=== PATIENT | female | born 1970 | race Caucasian/White ===

== ENCOUNTER 2025-01-23 05:20 | Emergency (ER) | payer OTHER, SELFPAY ==
[2025-01-23 05:25] VITALS: BP 128/66; PULSE 79; RESP 18; TEMP 36.6; O2SAT 99; BMI 35.7
[2025-01-23] MEDS: LIDOCAINE 1%-EPI 1:100,000 2 ML INFILTRATI (05:31)
--- NOTE | 2025-01-23 05:43 | ED_ITS ---
HPI - General Adult General Date Seen: 01/23/25 Chief complaint: Laceration/Wound Stated complaint: R arm injury at work Time Seen by Provider: 01/23/25 05:29 History of Present Illness HPI narrative: Patient is a 54-year-old woman who cut her right arm while at work on a sharp metal blade. Bleeding controlled, no complaints of loss of function or numbness, tetanus up-to-date. Related Data Allergies Allergy/AdvReac Type Severity Reaction Status Date / Time No Known Drug Allergies Allergy Verified 01/23/25 05:27 PFSH PFS Medical History (Updated 01/23/25 @ 05:41 by Leno Bustamante, RN) History of vaginal delivery Subclinical hypothyroidism ?E03.8 - Other specified hypothyroidism (ICD-10) Depression ?F32.A - Depression, unspecified (ICD-10) PTSD (post-traumatic stress disorder) ?F43.10 - Post-traumatic stress disorder, unspecified (ICD-10) Fibromyalgia ?M79.7 - Fibromyalgia (ICD-10) Surgical History (Updated 01/23/25 @ 05:41 by Leno Bustamante RN) History of cholecystectomy ?Z90.49 - Acquired absence of other specified parts of digestive tract (ICD- 10) H/O: section ?Z98.891 - History of uterine scar from previous surgery (ICD-10) History of dilation and curettage ?Z98.890 - Other specified postprocedural states (ICD-10) History of hysterectomy ?Z90.710 - Acquired absence of both cervix and uterus (ICD-10) History of tonsillectomy ?Z90.89 - Acquired absence of other organs (ICD-10) S/P gastric bypass ?Z98.84 - Bariatric surgery status (ICD-10) Bariatric surgery status ?Z98.84 - Bariatric surgery status (ICD-10) Social History Smoking Status: Former smoker How often do you have a drink containing alcohol: never AUDIT-C Alcohol total score: 0 Non-prescribed substance use: denies use Exam Narrative: Exam Narrative: Vital signs reviewed In general, alert, well-appearing woman. Extremities: Examination of the right arm shows a 2 cm straight laceration which extends into the subcutaneous tissue on the ulnar aspect of the forearm. Bleeding is controlled. Const: Vital Signs, click to edit/add: Vital Signs - 24 hr 01/23/25 05:25 Temperature 97.8 F Pulse Rate [Right Pulse Oximeter] 79 Respiratory Rate 18 Blood Pressure [Ri ght Upper Arm] 128/66 Pulse Oximetry 99 Oxygen Delivery Me thod Room Air Course Course ED Course: Procedure note: Wound was anesthetized using lidocaine with epinephrine. Explored, no evidence of foreign body or injury to deeper structures. Closed using 5 0 nylon, a total of 4 simple interrupted superficial sutures replaced. She tolerated this well without immediate complication. Dressing applied by the nurse. Discussed routine wound care, return for signs of infection, suture removal in 7-10 days if her clinic. Vital Signs Vital signs: Initial Vital Signs Temperature 97.8 F 01/23/25 05:25 Temperature Source Temporal Artery Scan 01/23/25 05:25 Pulse Rate 79 01/23/25 05:25 Respiratory Rate 18 01/23/25 05:25 Blood Pressure 128/66 01/23/25 05:25 Blood Pressure Mean 86 01/23/25 05:25 Blood Pressure Position Sitting 01/23/25 05:25 Pulse Oximetry 99 01/23/25 05:25 Oxygen Delivery Method Room Air 01/23/25 05:25 Vital Signs Temperature 97.8 F 01/23/25 05:25 Pulse Rate 79 01/23/25 05:25 Respiratory Rate 18 01/23/25 05:25 Blood Pressure 128/66 01/23/25 05:25 Pulse Oximetry 99 01/23/25 05:25 Oxygen Delivery Method Room Air 01/23/25 05:25 Temperature 97.8 F 01/23/25 05:25 Pulse Rate 79 01/23/25 05:25 Respiratory Rate 18 01/23/25 05:25 Blood Pressure 128/66 01/23/25 05:25 Pulse Oximetry 99 01/23/25 05:25 Oxygen Delivery Method Room Air 01/23/25 05:25
--- OUTSIDE RECORDS SUMMARY | 2025-01-23 05:57 | XMS_ITS | Clinical Summary ---
Author Organization [facility] Address [address] [place] [address] Care Team Providers Care Alliance Consultant Name Role Phone VotelCarlos MD Unavailable [phone] José Griggs MD Primary Care Provider [phone] Allergies Active Allergy Reactions Criticality Noted Date Comments Codeine Stomach Upset 08/13/2015 Stomach ache Ibuprofen Other - Describe In Comment Field,Rash Low 12/03/2015 History of gastric bypass Naproxen Other - Describe In Comment Field 08/25/2016 History of gastric bypass Venom-Honey Bee Anaphylaxis High 12/03/2015 Medications Multivitamin-Min -Calcium-FA (VIACTIV MULTI-VITAMIN) 200-0.4 mg Chew Take by mouth. 0 12/28/19 11 Active ferrous fumarate-vitamin c, 200-125 mg, 200 mg (66 mg iron)-125 mg Tab Take 1 tablet by mouth once daily with a meal. 0 12/28/19 11 Active pantoprazole 40 mg delayed-release tabletIndication s:S/P gastric bypass,Chronic GERD Take 1 Tablet (40 mg) by mouth once daily. 90 Tablet 2 07/10/19 25 Active albuterol HFA (PRO-AIR; VENTOLIN; PROVENTIL) 90 mcg/actuation inhalerIndicatio ns:Wheezing Inhale 1-2 Puffs by mouth every 4 hours if needed for Shortness Of Breath or Wheezing. 1 Each 01/07/20 25 Active DULoxetine (CYMBALTA) 60 mg Delayed-release capsuleIndicatio ns:Fibromyalgia Take 1 Capsule (60 mg) by mouth once daily. 90 Capsule 01/15/20 25 Active QUEtiapine (SEROQUEL) 25 mg tabletIndication s:Depression, recurrent,PTSD (post-traumatic stress disorder) Take 1 Tablet (25 mg) by mouth at bedtime. 90 Tablet 01/15/20 25 Active DULoxetine (CYMBALTA) 30 mg Delayed-release capsuleIndicatio ns:Fibromyalgia, Depression, recurrent Take 1 Capsule (30 mg) by mouth once daily. 90 Capsule 1 12/11/19 25 025 Discontin ued(*Medi cation adjustmen t) QUEtiapine (SEROQUEL) 25 mg tabletIndication s:Depression, recurrent,PTSD (post-traumatic stress disorder) Take 1 Tablet (25 mg) by mouth at bedtime. 90 Tablet 12/11/19 25 025 Discontin ued(Reord er (E-cancel not sent)) semaglutide (Wegovy) 0.25 mg/0.5 mL subcutaneous penIndications:C lass 2 severe obesity with body mass index (BMI) of 35 to 39.9 with serious comorbidity Inject 0.25 mg subcutaneous once weekly. 2 mL 3 12/11/19 25 025 Discontin ued(*Avai lability/ Formulary change/Co st of medicatio n) Active Problems Problem Noted Date Diagnosed Date Depression, recurrent 04/18/2024 Subclinical hypothyroidism 04/18/2024 Prediabetes 03/25/2024 PTSD (post-traumatic stress disorder) 03/22/2024 S/P gastric bypass 03/22/2024 Fibromyalgia 12/18/2020 Bariatric surgery status 09/17/2012 Resolved Problems Problem Noted Date Diagnosed Date Resolved Date Hypothyroidism 12/18/2020 04/18/2024 Genital herpes, unspecified 02/08/2005 03/22/2024 Encounters Date Type Department Care Team Description 01/15/2025 Travel 01/14/2025 7:40 AM CDT Telemedicine [facility] [address] [place] [address] José Griggs MD Medication Management 01/13/2025 Travel 12/13/2024 Telephone [facility] [address] [place] [address] José Griggs MD Prior Authorization (semaglutide (Wegovy) 0.25 mg/0.5 mL subcutaneous pen APPROVED December 14, 2024 to July 14, 2025) 12/10/2024 11:40 AM CDT Telemedicine [facility] [address] [place] [address] José Griggs MD Medication Management; Weight 12/05/2024 Travel 12/02/2024 2:30 PM CDT Office Visit [facility] [id number] [place] [phone] Jacque Mccloud MD Follow Up (EP - right shoulder MRI review) 12/02/2024 Travel 11/29/2024 Travel 11/28/2024 10:15 AM CDT Ancillary Procedure [facility] [id number] [place] [phone] 11/28/2024 Telephone [facility] [address] [facility] [address] [place] [address] Jacque Mccloud MD 11/28/2024 Travel 11/27/2024 Travel 11/21/2024 Travel 11/21/2024 Telephone [facility] [address] [place] [address] Zuleyka Knox DPT Failed Appointment 11/18/2024 10:30 AM CDT Office Visit 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) 11/18/2024 Travel 11/14/2024 Telephone [facility] [address] [place] [address] Zuleyka Knox DPT Failed Appointment 11/13/2024 Travel 11/02/2024 Travel 11/01/2024 9:20 AM CDT Procedure Only [facility] [address] [facility] [address] [place] [address] Naren Ulloa MD Procedure (Right shoulder pain) 11/01/2024 Travel 10/24/2024 7:44 AM CDT - 10/24/2024 11:59 PM CDT Hospital Encounter [facility] [address] [place] [address] Mady Shi, PEDIATRIC DENTAL ASSISTANT Nando Ocampo, PT 10/24/2024 Travel from Last 3 Months Immunizations Immunization Administration Dates Next Due COVID-19 VACCINE SPIKEVAX (M ODERNA 50MCG/0.5ML) 12YO+ PFS 03/22/2024 DTaP 02/12/2016 Hep B (Hepatitis B (Adult) Recombinant Adjuvanted) 10/09/2024 Hep B, Adolescent/high Risk Infant 09/08/2004 Hepatitis B, Unspecified 09/08/2004 INFLUENZA, IIV3 PF (AGE >= 6 MO) 03/22/2024 Influenza Virus, Unspecified 02/20/2015,02/11/20 14,03/12/2012 Influenza, IIV4 02/12/2016 Influenza, IIV4 (=>6mos) MDV 02/20/2015 Influenza, split (incl. mariela fied surface antigen) 03/10/2012 Pneumococcal Conj 21-Valent (Capvaxive) 10/09/2024 Td (Age >=7 Years) 01/17/2002 Td, Preservative Free (age > = 7 Years) 01/17/2002 Tdap 01/16/2020, 6,03/12/2012,2011 Tetanus Toxoid 01/17/2002 Zoster (Shingrix-RZV, recombinant) 01/20/2022, Family History Medical History Relation Name Comments Cancer Father pancreas and li er cancer, age 64. Diabetes Mother Hyperlipidemia Mother Hypertension Mother Thyroid Disease Mother , ag e 68 Relation Name Status Comments Father Mother Social History Tobacco Use Types Packs/Day Years Used Date Smoking Tobacco: Former Cigarettes Smokeless Tobacco: Never Tobacco Cessation:Counseling Given: Not Answered Comments:1-2 cigs per day. Started Chantix 3 weeks ago. Alcohol Use Standard Drinks/Week Comments Not Currently 0 (1 standard drink = 0.6 oz pur e alcohol) PHQ-2 Answer Date Recorded PHQ-2 TOTAL SCORE 0 01/14/2025 Social Connections Answer Date Recorded Do you often feel lonely or isolated from those around you? 0 03/21/2024 Alcohol Use Answer Date Recorded How often do you have a drink containing alcohol ? 1 01/14/2025 How many drinks containing a lcohol do you have on a typical day when you are drinking? 0 01/14/2025 How often do you have five or more drinks on one occasion? 0 01/14/2025 Financial Resource Strain Answer Date R ecorded Difficulty of Paying Living Expenses 3 03/22/2024 Difficulty of Paying Living Expenses Not on file 03/22/2024 Food Insecurity Answer Date Recorded Do you worry your food will run out before you are able to buy more? 1 03/21/2024 Transportation Needs Answer Date Record ed Does lack of transportation keep you from medica l appointments? 1 03/21/2024 Does lack of transportation keep you from work, meetings or getting things that you need? 1 03/21/2024 Housing Stability Answer Date Recorded What is your housing situation today? 1 03/21/2024 Utilities Answer Date Recorded Do you have trouble paying f or utilities (for example, heat, electricity, water, phone)? 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 Not on file Not on file Obstetrics History Para Term AB IAB SAB Ectopic Multiple Livin g Live Births 6 4 Date Outcome GA Total Labor Labor/2nd/3rd Weight Sex Type Anes PTL Roxane A1 A5 Name Clin Para Para Para Para Last Filed Vital Signs Vital Sign Reading Time Taken Comments Blood Pressure 122/86 09/24/2024 8:13 AM CDT Pulse 86 09/24/2024 8:13 AM CDT Temperature 36.8 C (98.3 F) 12/27/2010 2:20 PM CDT Respiratory Rate - - Oxygen Saturation 99% 09/24/2024 8:13 AM CDT Inhaled Oxygen Concentration - - Weight 87.5 kg (193 lb) 09/24/2024 8:13 AM CDT Height 157.5 cm (5' 2) 03/22/2024 2:16 PM HAND STAMPER Body Mass Index 35.3 03/22/2024 2:16 PM HAND STAMPER Plan of Treatment Upcoming Encounters Date Type Department Care Team (Late st Contact Info) Description 01/27/2025 8:45 AM CDT Office Visit [facility] [address] [place] [phone] Jacque Mccloud MD [address] [facility] [address] [place] [address] 03/26/2025 11:40 AM HAND STAMPER Office Visit [facility] [address] [place] [address] [place] [address] [address] [place], [place] [phone] Health Maintenance Due Date Last Done Comments Pap test for age 21-65 1989 Lipids for age 45-75 2013 Mammogram for age 45-75 07/05/2015 07/05/19 15, 07/03/2013, 03/26/2012, Additional history exists Hepatitis B series for 19+ ( 3 of 3 - 19+ 3-dose series) 12/04/2024 10/09/2024, 09/08/2004 Influenza Vaccine (#1) 2024 , 02/12/2016, 02/20/2015, Additional history exists BMI (ht and wt on same day) for age 18+ 03/22/2025 03/22/2024 Depression screening for age 12+ 01/14/2026 01/14/2025, 12/10/2024, 09/05/2024, Additional history exists Tetanus booster 01/15/2030 01/16/2020, 11/07/2015, 03/12/2012, Additional history exists Colonoscopy through age 75 05/01/2034 05/01/2024 RSV vaccine for adults or (1 - 1-dose 75+ series) 2043 Zoster (shingles) series for age 50+ Completed 01/20/2022, 11/11/2021 COVID-19 vaccine series Completed 03/22/2024, 11/11 HIV for age 15-65 Completed 03/22/2024 Hepatitis C screening for ag e 18-79 Completed 03/22/2024 Pneumococcal series for age 50+ Completed Procedures Procedure Name Priority Date/Time Associated Diagnosis Comments MR SHOULDER RIGHT WO Routine 11/28/2024 10:52 AM CDT Subacromial bursitis of right shoulder joint COLONOSCOPY SCREENING Routine 05/01/2024 12:00 AM HAND STAMPER Positive colorectal cancer screening using DNA-based stool test ANTI HIV 1/2 Routine 03/22/2024 3:28 PM HAND STAMPER Screening for HIV (human immunodeficiency virus) ANTI HCV Routine 03/22/2024 3:28 PM HAND STAMPER Need for hepatitis C screening test SCAN-MAMMOGRAPHY REPORT 07/04/2014 12:00 AM CDT from Last 3 Months or Most Recently Relevant to Health Maintenance Results * MR SHOULDER RIGHT WO CONTRAST (11/28/2024 10:52 AM CDT) Anatomical Region Laterality Modality SHOULDER R Magnetic Resonan ce 11/28/2024 10:5 2 AM CDT Impressions 11/28/2024 1:47 PM CDT 1. High-grade partial bursal surface tear of the supraspinatus tendon with 4 mm retraction. 2. The glenoid labrum appears grossly intact. 3. Moderate acromioclavicular joint degenerative changes. 4. Small subacromial enthesophyte. Narrative 11/28/2024 1:47 PM CDT For Patients: As a result of the Cures Act, medical imaging exams and procedure reports are released immediately into your electronic medical record. You may view this report before your referring provider. If you have questions, please contact your health care provider. EXAM: MR SHOULDER RIGHT WO LOCATION: [facility] DATE: 11/28/2024 INDICATION: Subacromial Bursitis Of Right Shoulder Joint COMPARISON: Radiographs from 09/24/2024 TECHNIQUE: Unenhanced. FINDINGS: ROTATOR CUFF: -Supraspinatus: Partial bursal surface tear of the mid supraspinatus tendon at the footprint which measures 7 mm in AP width. The tear involves the majority of the tendon thickness although there appears to be intact articular surface fibers. There is 4 mm retraction and adjacent subcortical cystic change. No fatty atrophy. -Infraspinatus: No tendon tear, tendinopathy or fatty atrophy. -Subscapularis: No tendon tear, tendinopathy or fatty atrophy. -Teres minor: No tendon tear, tendinopathy or fatty atrophy. CORACOACROMIAL ARCH: -Morphology: Type II acromion. Small subacromial enthesophyte. Subacromial and subcoracoid space are normal. -Bursa: No significant subacromial or subcoracoid bursitis. ACROMIOCLAVICULAR JOINT: -Moderate arthrosis. LONG HEAD OF BICEPS TENDON: -No tendinopathy or tear. No tenosynovitis or subluxation. GLENOHUMERAL JOINT: -Labrum: No labral tear. No paralabral cyst. -Cartilage: No high-grade articular cartilage defect. -Joint space: No effusion or synovitis. -Glenohumeral ligaments and capsule: No pericapsular inflammation. BONES: -No fracture or concerning marrow replacing lesion. SOFT TISSUES: -Normal deltoid muscle bulk. Normal visualized chest wall and axilla. Procedure Note Mauro Hernandez MD - 11/28/2024 For Patients: As a result of the Cures Act, medical imagingexams and procedure reports are released immediately into your electronicmedical record. You may view this report before your referring provider.If you have questions, please contact your health care provider. EXAM: MR SHOULDER RIGHT WO LOCATION: [facility] DATE: 11/28/2024 INDICATION: Subacromial Bursitis Of Right Shoulder Joint COMPARISON: Radiographs from 09/24/2024 TECHNIQUE: Unenhanced. FINDINGS: ROTATOR CUFF: -Supraspinatus: Partial bursal surface tear of the mid supraspinatustendon at the footprint which measures 7 mm in AP width. The tear involvesthe majority of the tendon thickness although there appears to be intactarticular surface fibers. There is 4 mm retraction and adjacentsubcortical cystic change. No fatty atrophy. -Infraspinatus: No tendon tear, tendinopathy or fatty atrophy. -Subscapularis: No tendon tear, tendinopathy or fatty atrophy. -Teres minor: No tendon tear, tendinopathy or fatty atrophy. CORACOACROMIAL ARCH: -Morphology: Type II acromion. Small subacromial enthesophyte. Subacromialand subcoracoid space are normal. -Bursa: No significant subacromial or subcoracoid bursitis. ACROMIOCLAVICULAR JOINT: -Moderate arthrosis. LONG HEAD OF BICEPS TENDON: -No tendinopathy or tear. No tenosynovitis or subluxation. GLENOHUMERAL JOINT: -Labrum: No labral tear. No paralabral cyst. -Cartilage: No high-grade articular cartilage defect. -Joint space: No effusion or synovitis. -Glenohumeral ligaments and capsule: No pericapsular inflammation. BONES: -No fracture or concerning marrow replacing lesion. SOFT TISSUES: -Normal deltoid muscle bulk. Normal visualized chest wall and axilla. IMPRESSION: 1. High-grade partial bursal surface tear of the supraspinatus tendonwith 4 mm retraction. 2. The glenoid labrum appears grossly intact. 3. Moderate acromioclavicular joint degenerative changes. 4. Small subacromial enthesophyte. us Jacque Mccloud MD MR Final Resu lt * COLONOSCOPY SCREENING (05/01/2024 12:00 AM HAND STAMPER) us José Griggs MD GI PROCEDURE ORD Final Resul t * ANTI HCV (03/22/2024 3:28 PM HAND STAMPER) HEPATITIS C ANTIBODY NON-REACTI VE NON-REACT JEFRY [facility] Comment: HCV antibody was non-reactive. There is no laboratory evidence of HCV infection. In most cases, no further action is required. However, if recent HCV exposure is suspected, a test for HCV RNA (test code 40365) is suggested. For additional information please refer to http://[employer]/faq/QRZ31l4 (This link is being provided for informational/ educational purposes only.) Blood BLOOD SPECIMEN / Unknown 03/22/2024 3:28 PM HAND STAMPER 03/22/2024 3:28 PM HAND STAMPER us José Griggs MD SEND OUTS Final Result [facility] [address] [place] [address], [facility] [address] [place] [address] * ANTI HIV 1/2 [89116.0] (03/22/2024 3:28 PM HAND STAMPER) Pathologist [facility] HIV AG/AB, 4TH GEN NON-REACT JEFRY NON-REACT JEFRY [facility] Comment: HIV-1 antigen and HIV-1/HIV-2 antibodies were not detected. There is no laboratory evidence of HIV infection. PLEASE NOTE: This information has been disclosed to you from records whose confidentiality may be protected by state law. If your state requires such protection, then the state law prohibits you from making any further disclosure of the information without the specific written consent of the person to whom it pertains, or as otherwise permitted by law. A general authorization for the release of medical or other information is NOT sufficient for this purpose. For additional information please refer to http://[employer]/faq/YKZ600 (This link is being provided for informational/ educational purposes only.) The performance of this assay has not been clinically validated in patients less than 2 years old. Blood BLOOD SPECIMEN / Unknown 03/22/2024 3:28 PM HAND STAMPER 03/22/2024 3:28 PM HAND STAMPER us José Griggs MD SEND OUTS Final Result [facility] [address] [place] [address], [place] [phone] [facility] [address] [place] [address] * SCAN-MAMMOGRAPHY REPORT (07/04/2014 12:00 AM CDT) Anatomical Region Laterality Modality Other us Scanner OTHER Final Result from Last 3 Months or Most Recently Relevant to Health Maintenance Insurance [facility] [place] Care Teams Alliance Consultant Relationship Specialty [place] [address] [place] [address] PCP - General Family Practice 03/22/24 Carlos [place] [address] Family Practice 02/29/24
[2025-01-23 06:08] VITALS: BP 124/80; PULSE 74; RESP 18; TEMP 36.6; O2SAT 99
[2025-01-23 06:09] VITALS: BP 124/80; PULSE 74; RESP 18; TEMP 36.6
== END 2025-01-23 06:09 | disposition home or self-care (01) ==
PROVIDERS: Emergency Provider Emergency Medicine; PCP Family Medicine
DX: S51.811A Laceration without foreign body of right forearm, initial encounter (principal); W26.8XXA Contact with other sharp object(s), not elsewhere classified, initial encounter; Y99.0 Civilian activity done for income or pay
CPT/HCPCS: 12001; 99282; 99284